=== PATIENT | female | born 1980 | race Caucasian/White ===

== ENCOUNTER 2021-02-17 13:41 | Emergency (ER) | payer OTHER ==
[~2021-02-17] VITALS: Ht 157.5 cm; Wt 77.1 kg
[~2021-02-17 13:41] MED LIST: CIPROFLOXACIN500 M1 PO; CYMBALTA60 MG PO; ERYTHROMYCIN E3.5 G1 OPHTHALMIC; IBUPROFEN 800800 M1 PO; LORTAB 5 MG/5001 TA1 PO; MEDROLDOSEPACK PO; NAPROSYN500 MG PO; NORCO 5-325 TA1 EACH PO; PYRIDIUM200 MG PO; ROBAXIN 750 MG750 MG PO; ROBAXIN500 MG PO; XANAX 0.25 MG0.25 MG PO; ZANTAC 150MG T150 MG PO
[2021-02-17 14:10] LABS: URINE BILIRUBIN NEGATIVE (Negative); URINE BLOOD 1+ (Negative); URINE CLARITY CLEAR; URINE COLOR YELLOW; URINE GLUCOSE-RANDOM NEGATIVE (Negative); URINE KETONES NEGATIVE (Negative); URINE LEUKOCYTES-REFLEX NEGATIVE (Negative); URINE PROTEIN NEGATIVE (Negative); URINE SPECIFIC GRAVITY 1.025 (1.005-1.030); URINE UROBILINOGEN 0.2 E.U./dl (0.2-1.0)
[2021-02-17 14:13] LABS: URINE NITRITE-REFLEX POSITIVE (Negative)
[2021-02-17 14:25] LABS: SQUAMOUS 0-3 Few /LPF (0-3)
[2021-02-17 14:26] LABS: BACTERIA-REFLEX >30 Many /HPF (None Seen); CASTS None Seen /LPF (None Seen); CRYSTALS None Seen /LPF (None Seen); URINE RBC 0-2 Rare /HPF (0-2); URINE WBC-REFLEX 0-5 Rare /HPF (0-5)
[2021-02-17] MEDS ORDERED: BACTRIM DS TAB1 EACH PO (16:20)
[2021-02-17 16:28] VITALS: BP 152/105
== END 2021-02-17 16:28 | disposition home or self-care (01) ==
LOC: M.ERS 13:41
PROVIDERS: Physician Assistant
DX: N39.0 Urinary tract infection, site not specified (principal); R10.2 Pelvic and perineal pain; Z98.890 Other specified postprocedural states; Z79.899 Other long term (current) drug therapy; Z88.8 Allergy status to other drugs, medicaments and biological substances